=== PATIENT | male | born 1980 | race Caucasian/White ===

== ENCOUNTER 2020-10-20 16:07 | Emergency (ER) | payer OTHER ==
[~2020-10-20 16:07] MED LIST: CLEOCIN300 MG PO
== END 2020-10-20 18:20 | disposition home or self-care (01) ==
LOC: FER 16:07
DX: S43.51XA Sprain of right acromioclavicular joint, initial encounter (principal); I10 Essential (primary) hypertension; W05.1XXA Fall from non-moving nonmotorized scooter, initial encounter
CPT/HCPCS: 73030